=== PATIENT | female | born 1975 | race Caucasian/White ===

== ENCOUNTER 2017-08-20 15:16 | Inpatient (IN) | payer BC ==
[2017-08-20] MEDS ORDERED: Dexamethasone 20 MG/5 ML VIAL ONE (15:29)
[2017-08-20] MEDS ORDERED: Ondansetron HCl/PF 4 MG/2 ML Vial ONE ×2 (15:29→18:23)
[2017-08-20] MEDS ORDERED: Ketorolac Tromethamine 30 MG/ML VIAL ONE ×2 (15:29→18:23)
[2017-08-20 16:03] VITALS: BMI 28.8
--- NOTE | 2017-08-20 16:28 | PDOC.LDHP ---
Labor and Delivery H&P Chief complaint: contractions, abdominal pain, other (Prior X 1) HPI: 41 year old patient of Dr. Prado prior x1 presents with spontaneous labor with contractions since this morning. Dr. Prado sent patient to L&D for eval. Current gestational age (weeks): 38 (5 days) Dating criteria: last menstrual period Grav: 7 (5 SABs) Para: 1 Current complications: other (AMA, questionable mitral valve prolapse. ) Abnormal US findings: No Current medications: none Previous surgical history: low tranverse CS, other (LEEP) Allergies/Adverse Reactions: Allergies Allergy/AdvReac Type Severity Reaction Status Date / Time levofloxacin [From Levaquin] Allergy Intermediate Rash Verified 09/20/13 22:47 Sulfa (Sulfonamide Allergy Unknown Verified 09/20/13 22:46 Antibiotics) Social history: none - Physical Exam Abnormal vital signs: BP 140/84 General: NAD Abdomen: gravid FHT: category 1, variability present - Vaginal Exam cm dilated: 4 Effacement: 90% Station: -1 - Assessment L&D Assessment: term patient in labor (patient for repeat next week, but will procede now due to contractions and cervical change from prior visit. Dr. Prado on her way. Anesthesia eval preop.) - Plan Plan: admit to L&D, to OR for section, anesthesia consult for pain management
[2017-08-20] MEDS ORDERED: Bicitra 30 ML UDCUP PO SCH (16:30)
[2017-08-20] MEDS ORDERED: CEFAZOLIN/Water 2 GM/20 ML SYRINGE SLOW IVP SCH (16:30)
[2017-08-20] MEDS: Lactated Ringer's 1,000 ML IV SCH (16:30)
--- NOTE | 2017-08-20 16:46 | PDOC.OPDEL ---
OB Operative/Delivery Note Delivery Dr/Surgeon: Johan Assist: Jeet Pre-Delivery Diagnosis: active labor (at 38w5d, previous CS, declines TOLAC) Procedure/Post Delivery Dx: repeat low transverse CS Weeks gestation: 38 Anesthesia: spinal - Findings A Sex: male Weight: 7 lb 3 oz - 1 min: 8 - 5 min: 9 - Additional Findings/Plan Placenta delivered: spontaneous findings: low transverse hysterotomy without extension, normal uterus, normal tubes, normal ovaries Estimated blood loss: 700 Compilations/Other Findings: Bladder adhered to GENIE, taken down for hysterotomy then backfilled with methylene blue to ensure bladder integrity, no extravasation of blue fluid after instillation of >300cc of methylene blue. Post delivery plan: routine recovery
[2017-08-20 16:53] LABS: #Basophils 0.1 thou/uL (0.0-0.2); #Eosinphils 0.1 thou/uL (0.0-0.7); #Lymphocytes 1.7 thou/uL (1.20-3.40); #Neutrophils 6.5 thou/uL (1.40-6.50); %Basophils 0.9 % (0.0-1.0); %Eosinophils 0.7 % (0.0-10.0); %Monocytes 10.4 % (0.0-10.0); Hematocrit 40.5 % (36.0-47.0); Mean Platelet Volume 8.9 fL (7.4-10.4); White Blood Cell (WBC) Count 9.3 thou/uL (4.8-10.8)
[2017-08-20] MEDS ORDERED: Eucerin (Mineral Oil/Petrolatum,White) 30 gm Jar TOP PRN (17:17)
[2017-08-20] MEDS ORDERED: Naloxone HCl 0.4 mg/ml Vial IVP PRN ×2 (17:17)
[2017-08-20] MEDS ORDERED: Ondansetron HCl/PF 4 MG/2 ML Vial IVP PRN ×2 (17:17→21:14)
[2017-08-20] MEDS ORDERED: diphenhydrAMINE 50 MG/ML VIAL IVP PRN (17:17)
[2017-08-20] MEDS ORDERED: Ketorolac Tromethamine 30 MG/ML VIAL IVP PRN (17:17)
[2017-08-20] MEDS ORDERED: Naloxone HCl 0.4 mg/ml Vial IV PRN (17:17)
[2017-08-20] MEDS ORDERED: Communication Order-Pharmacy FS SCH (17:30)
[2017-08-20] MEDS ORDERED: Midazolam HCl 2 mg/2 ml Vial ONE (17:46)
[2017-08-20] MEDS ORDERED: FLU VACC QS2017-18 36 mo. & older 0.5 ML SYRINGE IM ONE (18:00)
[2017-08-20] MEDS ORDERED: Adacel (T-DAP) 0.5 ML VIAL IM ONE (18:03)
[2017-08-20] MEDS ORDERED: diphenhydrAMINE 25 MG CAP PO PRN ×2 (18:03→21:14)
[2017-08-20] MEDS ORDERED: Measles/Mumps/Rubella 10 MCG/0.5 ML VIAL SC ONE (18:03)
[2017-08-20] MEDS ORDERED: Simethicone Chewable 80 MG TAB PO PRN ×2 (18:03→21:14)
[2017-08-20] MEDS ORDERED: Lanolin Ointment 7 GM TUBE TOP PRN ×2 (18:03→21:14)
[2017-08-20] MEDS ORDERED: Varicella virus, LIVE 0.5 ML VIAL SC ONE (18:03)
[2017-08-20] MEDS ORDERED: Bisacodyl 10 MG SUPP PR PRN ×2 (18:03→21:14)
--- NOTE | 2017-08-20 18:12 | PDOC.EVN ---
Event Note - Event Note Event Note: 1600 on 08/20/2017: Called to assist Dr Prado on this repeat LTCS. term. Methylene Blue used to instill via garcia to assess bladderintegrity due to lysis of adhesions after peritoneal entry...bladder intact. Surgeon: Johan Assist: Sekou Approach: Derrick Anesthesia: SAB Complications none Cord bank blood collected at patient request. Please see full dictation by Johan. Hand written op note in chart.
[2017-08-20] MEDS ORDERED: Morphine PF 1 MG/ML SYR ONE (18:22)
[2017-08-20] MEDS ORDERED: Dexamethasone 4 mg/ml Vial ONE (18:23)
[2017-08-20] MEDS ORDERED: Oxytocin 10 UNITS/ML VIAL ONE ×2 (18:23)
[2017-08-20] MEDS ORDERED: PHENYLEPHRINE-NS 100 MCG/ML 10 ML SYRINGE ONE (18:23)
[2017-08-20] MEDS ORDERED: LR / Pitocin 40 units/1000 ml 1,000 ML ONE (18:55)
[2017-08-20] MEDS ORDERED: Promethazine HCl 25 MG/ML VIAL IM PRN (21:14)
[2017-08-20] MEDS ORDERED: Acetaminophen 325 MG TAB PO PRN (21:14)
--- NOTE | 2017-08-20 22:10 | OP ---
DATE OF OPERATION: 08/20/2017 PREOPERATIVE DIAGNOSES: 1. Intrauterine at 38 weeks and 5 days. 2. Early labor. 3. Prior section x1, declines trial of labor after . POSTOPERATIVE DIAGNOSES: 1. Intrauterine at 38 weeks and 5 days. 2. Early labor. 3. Prior section x1, declines trial of labor after . 4. Dense adhesions. PROCEDURE: Repeat low transverse section via Pfannenstiel skin incision and backfilling of the bladder with methylene blue. ANESTHESIA: Spinal by CLIFFORD Plascencia. SURGEON: Jennifer Prado M.D. DYE REEL OPERATOR HELPER SURGEON: Jay Jay Marcano M.D. ESTIMATED BLOOD LOSS: 700 mL. URINE OUTPUT: 100 mL. After subtracting the amount of methylene blue that was infused into the blad nikita. COMPLICATIONS: None. DRAINS: Resendiz catheter. FINDINGS: Male infant, cephalic presentation, thin meconium, OP presentation, Apgars are 8 and 9. W eight is currently pending. The bladder was densely adherent up to the lower uterine segment overlyi ng a uterine window and the bladder was backfilled to ensure bladder integrity prior to closure of th e abdomen and a small deserosalization on the dome of the bladder was repaired as well. There was no extravasation of methylene blue into the abdomen upon backfilling. The fallopian tubes and ovaries were normal appearing. OPERATIVE TECHNIQUE: The patient was taken to the operating room where spinal anesthesia was obtaine d without difficulty. The patient was prepped and draped in a sterile fashion in the dorsal supine p osition with a leftward tilt. After ensuring adequacy of anesthesia, a Pfannenstiel skin incision wa s made through the patient's prior scar and carried down to the underlying subcutaneous tis scottie with the knife cauterizing bleeders along the way. The fascia was nicked in the midline with the knife and carried laterally with the Mayos. The superior aspect of the fascia was tented with 2 Koc hers and dissected off the rectus with the Mayos. The peritoneum was then entered into and there was spillage of clear fluid. At that time, the bladder was noted to be adherent up onto the lower uteri ne segment close to where we had entered into the peritoneum. Once the superior aspect of the fascia had been taken off the rectus sufficiently the inferior aspect of the fascia was tented with 2 Koche rs and dissected off the rectus down the pubic symphysis and the peritoneum was manually retracted. The Moose O was unable to be placed secondary to the bladder adherence and therefore, the Metzenbaum s were used to identify the vesicouterine peritoneum and take the bladder flap down bluntly below the level of the uterine window. The Moose O retractor was then placed and the lower uterine segment w as incised above the uterine window in a transverse fashion and extended with the Aldrich maneuver. The infant's head was brought from the hysterotomy and delivered atraumatically followed by the body. T he 's cord was clamped and handed to awaiting krista team. The cord was then prepped and cord blo od banking was collected with a good sample noted. The placenta was then manually removed and the ut erus is exteriorized, cleared of all clots and debris and placed back into the abdomen after lapping up posterior cul-de-sac. The hysterotomy was repaired with a #1 Monocryl in a running locking fashio n. There was oozing on the right lateral aspect and a [id number]-[id number] stitch was placed of #1 Monocr yl. However, this increased bleeding at the access site of the Monocryl stitch, therefore, a 2-0 Kapil ryl was used to close this area and hemostasis was noted. There was some oozing on the serosal edges superiorly with the bladder flap had been taken down and this was cauterized with the Bovie and pres sure was held at that time. At that time, the Moose O retractor was removed and the bladder was cesar k filled. There was no methylene blue extravasating into the abdomen after infusing 300 mL of the me thylene blue diluted in normal saline. At that time, the bladder was then decompressed and hysteroto my was noted to be hemostatic. SurgiSeal was placed over the hysterotomy. The deserosalization was noted and this occurred upon entry into the peritoneum and this was reapproximated with 2-0 Vicryl in a running fashion with excellent reapproximation. The rectus were examined and noted to be hemostat ic and the fascia was reapproximated with 0 PDS x2 sutures with excellent reapproximation. Subcutane ous tissue was irrigated and cauterized of any bleeders and reapproximated with a 2-0 plain gut in a running fashion. Skin was closed with 4-0 Monocryl in subcuticular fashion and Dermabond was applied as well as a pressure dressing. The patient tolerated the procedure well. Sponge, lap, and needle counts were correct x2. The patient was taken to recovery room in stable condition. The patient rec eived Ancef 2 grams prior to the procedure.
[2017-08-21] MEDS: Ibuprofen 800 MG TAB PO SCH ×4 (01:50→22:12)
[2017-08-21] MEDS: Lactated Ringer's 1,000 ML IV SCH ×3 (02:03→15:41)
[2017-08-21] MEDS ORDERED: Acetaminophen/Codeine 30-300mg Tablet PO PRN ×2 (05:30)
--- NOTE | 2017-08-21 05:56 | PDOC.PP ---
Post Progress Note Post Day #: 0-1 Subjective: Doing well, pain well controlled. PO intake tolerated: yes Flatus: yes Ambulation: no Vital Signs (12 hours) Temp Pulse Resp BP Pulse Ox 08/21/17 03:45 98.2 F 72 18 113/69 08/21/17 00:39 98.2 F 67 18 143/80 H 98 08/20/17 23:01 97.8 F 68 18 142/78 H 08/20/17 21:53 98.0 F 68 18 141/75 H 08/20/17 20:30 98.1 F 62 20 137/82 Weight Weight 168 lb - Physical Examination Cardiovascular: no m/r/g Respiratory: clear to auscultation bilaterally Abdominal: + bowel sounds, no distention, appropriately TTP Extremities: negative homans (B) Deviation from normal: Dressing in place Neurological: no gross focal deficits Psychiatric: A&Ox3 Result Diagrams: 08/20/17 16:20 Additional Labs: Post Labs Blood Type O POSITIVE 08/20/17 16:20 (1) delivery delivered Code(s): O82 - ENCOUNTER FOR DELIVERY WITHOUT INDICATION Status: Acute - Assessment/Plan Postop day 12 hours now. Doing well. 1. Monitor BPs, a few systolics were 140 but no PIH SXS 2. Pain meds prn 3. Remove garcia later this AM 4. Dressing later this pm ok to remove 5. Ambulate. 6. Hemagram pending
[2017-08-21 06:01] LABS: Mean Platelet Volume 8.4 fL (7.4-10.4); Red Blood Cell (RBC) Count 3.48 mill/uL (4.20-5.40); White Blood Cell (WBC) Count 17.1 thou/uL (4.8-10.8)
[2017-08-21] MEDS: Ferrous Sulfate 325 MG TAB PO SCH ×2 (07:55→22:13)
[2017-08-21] MEDS ORDERED: Prenatal Vitamin 1 TAB PO SCH (09:00)
[2017-08-21] MEDS: Docusate (Surfak) 240 MG CAP PO SCH ×2 (09:28→22:12)
[2017-08-21] MEDS: Prenatal Vitamin 1 TAB PO SCH (09:29)
[2017-08-21] MEDS ORDERED: Ibuprofen 800 MG TAB PO SCH (22:00)
[2017-08-22] MEDS: HYDROcodone/Acetaminophen 5/325 mg Tablet PO PRN ×5 (00:05→21:05)
[2017-08-22] MEDS: Ibuprofen 800 MG TAB PO SCH ×3 (05:44→21:01)
[2017-08-22] MEDS: Lactated Ringer's 1,000 ML IV SCH ×3 (07:50→17:07)
[2017-08-22] MEDS: Ferrous Sulfate 325 MG TAB PO SCH ×2 (07:50→19:19)
--- NOTE | 2017-08-22 08:39 | PDOC.PP ---
Post Progress Note Post Day #: 2 PO intake tolerated: yes Flatus: yes Ambulation: yes Vital Signs (12 hours) Temp Pulse Resp BP 08/22/17 08:07 98.4 F 90 20 119/56 L 08/22/17 05:00 98.2 F 75 18 111/55 L 08/22/17 04:00 98.3 F 80 18 08/22/17 00:41 98.3 F 80 18 109/54 L 08/22/17 00:00 98.3 F 80 18 Weight Weight 168 lb - Physical Examination General: NAD Cardiovascular: RRR Respiratory: non-labored breathing Abdominal: no distention, appropriately TTP Skin: CS incision dry & intact, no rash Neurological: no gross focal deficits Psychiatric: normal affect Result Diagrams: 08/21/17 05:38 Additional Labs: Post Labs Blood Type O POSITIVE 08/20/17 16:20 Hep Bs Antigen Non-Reactive S/CO (NonReactive) 08/20/17 16:20 (1) delivery delivered Code(s): O82 - ENCOUNTER FOR DELIVERY WITHOUT INDICATION Status: Acute
[2017-08-22] MEDS: Prenatal Vitamin 1 TAB PO SCH (09:18)
[2017-08-22] MEDS: Docusate (Surfak) 240 MG CAP PO SCH ×2 (09:18→20:30)
[2017-08-23] MEDS: Lactated Ringer's 1,000 ML IV SCH ×2 (01:06→10:08)
[2017-08-23] MEDS: HYDROcodone/Acetaminophen 5/325 mg Tablet PO PRN (01:13)
[2017-08-23] MEDS: Ibuprofen 800 MG TAB PO SCH (06:30)
[2017-08-23 08:28] VITALS: BP 123/71; TEMP 98.1
--- NOTE | 2017-08-23 09:00 | PDOC.PP ---
Post Progress Note Post Day #: 3 Subjective: DALE overnight, relieved with 2 norco however lingering. Has PT appt today for neck manipulation and MRI later this month. f/u neuro. PO intake tolerated: yes Flatus: yes Ambulation: yes Vital Signs (12 hours) Temp Pulse Resp BP 08/23/17 08:28 98.1 F 79 20 123/71 08/23/17 07:25 98.2 F 87 20 08/23/17 06:35 98.2 F Weight Weight 168 lb - Physical Examination General: NAD Cardiovascular: RRR Respiratory: non-labored breathing Abdominal: no distention, appropriately TTP Fundus firm & at: umb-2 Extremities: negative homans (B) Skin: CS incision dry & intact (bruising to lower aspect of inc down mons, no redness or induration) Neurological: no gross focal deficits Psychiatric: normal affect Result Diagrams: 08/21/17 05:38 Additional Labs: Post Labs Blood Type O POSITIVE 08/20/17 16:20 Hep Bs Antigen Non-Reactive S/CO (NonReactive) 08/20/17 16:20 (1) delivery delivered Code(s): O82 - ENCOUNTER FOR DELIVERY WITHOUT INDICATION Status: Acute - Assessment/Plan VSSAF Doing well met all milestones Home with [place] and ibuprofen DALE- fu with neuro, po pain meds for relief, cont PT as previously Rx'd by neuro. BP wnl, no concern for PIH. Hgb wnl post surgery, cont pnv. Rh pos RImm DC home FU 2 wk
[2017-08-23] MEDS: Prenatal Vitamin 1 TAB PO SCH (10:08)
[2017-08-23] MEDS: Ferrous Sulfate 325 MG TAB PO SCH (10:08)
[2017-08-23] MEDS: Docusate (Surfak) 240 MG CAP PO SCH (10:08)
== END 2017-08-23 13:00 | disposition home or self-care (01) | DRG 766 ==
LOC: L&D/OP 15:16 → L&D 16:39 → 3SW 20:25
PROVIDERS: ADMIT Student in an Organized Health Care Education/Training Program; ATTEND Student in an Organized Health Care Education/Training Program
PROC: 10D00Z1 Extraction of Products of Conception, Low, Open Approach (ICD-10-PCS; principal; 2017-08-20)
DX: O34.211 Maternal care for low transverse scar from previous cesarean delivery (principal); Z37.0 Single live birth; Z3A.38 38 weeks gestation of pregnancy
CPT/HCPCS: 36415; 85025; 85027; 86780; 86850; 86900; 86901; 87340; 87389; 90707; 90715; 90716; J1100; J1200; J1885; J2250; J2274; J2405; J2590; Q9968

== ENCOUNTER 2020-10-30 07:05 | Day surgery (SDC) | payer BC ==
[2020-10-29 11:23] VITALS: BMI 19.2
[2020-10-30] MEDS ORDERED: Acetaminophen 500 MG TAB ONE (07:46)
[2020-10-30] MEDS ORDERED: Ketorolac Tromethamine 30 MG/ML VIAL ONE (07:46)
[2020-10-30] MEDS ORDERED: XYLOCAINE 2%-EPI 1:100,000 20 ML VIAL ONE (08:40)
[2020-10-30] MEDS ORDERED: Bupivacaine 0.25% HCL 30 ML VIAL ONE (08:40)
[2020-10-30] MEDS ORDERED: Fentanyl 100 MCG/2 ML VIAL ONE (08:55)
[2020-10-30] MEDS ORDERED: Lidocaine 1% PF 5 ML VIAL ONE (10:39)
[2020-10-30] MEDS ORDERED: ePHEDrine 50 MG/ML VIAL ONE (10:39)
[2020-10-30] MEDS ORDERED: Rocuronium Bromide 10 MG/ML (10ML VIAL) ONE (10:39)
[2020-10-30] MEDS ORDERED: PROPOFOL 200 MG/20 ML VIAL ONE (10:39)
[2020-10-30] MEDS ORDERED: Dexamethasone 20 MG/5 ML VIAL ONE (10:39)
[2020-10-30] MEDS ORDERED: HYDROcodone/Acetaminophen 5/325 mg Tablet ONE (11:14)
== END 2020-10-30 13:30 | disposition home or self-care (01) ==
LOC: SDC 07:05
PROVIDERS: ATTEND Specialist
PROC: 0YU50JZ Supplement Right Inguinal Region with Synthetic Substitute, Open Approach (ICD-10-PCS; principal; 2020-10-30)
DX: K40.90 Unilateral inguinal hernia, without obstruction or gangrene, not specified as recurrent (principal); G43.909 Migraine, unspecified, not intractable, without status migrainosus; Z79.899 Other long term (current) drug therapy; Z88.1 Allergy status to other antibiotic agents; Z88.2 Allergy status to sulfonamides
CPT/HCPCS: 88184; 88302; 88307; C1781; J0690; J1100; J1885; J2704; J3010; J3490; S0020